=== PATIENT | female | born 1995 | race African-American/Black ===

== ENCOUNTER 2019-06-08 07:10 | Emergency (ER) | payer OTHER, SELFPAY ==
--- NOTE | 2019-06-08 08:51 | RAD REPORT ---
EXAM DESCRIPTION: RAD - Chest Single View - 06/08/2019 8:26 am CLINICAL HISTORY: Left rib pain Chest pain. COMPARISON: No comparisons FINDINGS: Portable technique limits examination quality. The lungs are grossly clear. The heart is normal in size. No displaced fractures. IMPRESSION: No acute intrathoracic process suspected.
--- NOTE | 2019-06-08 08:53 | RAD REPORT ---
EXAM DESCRIPTION: RAD - Ribs Left - 06/08/2019 8:26 am CLINICAL HISTORY: Pain s/p fall Left rib pain COMPARISON: Chest Single View dated 06/08/2019 FINDINGS: A displaced rib fracture is not seen. No aggressive rib lesion. IMPRESSION: Negative study.
[2019-06-08 08:57] LABS: Urine Blood NEGATIVE (NEG); Urine Glucose NEGATIVE (NEG); Urine Protein NEGATIVE (NEG); Urine Specific Gravity 1.025 (1.005-1.030)
--- NOTE | 2019-06-08 09:35 | ER ---
[facility] Name: Robin John Age: 23 yrs Sex: Female : 1995 Arrival Date: 06/08/2019 Time: 07:12 Bed 8 Private MD: Diagnosis: Flank pain, Left rib contusion Presentation: 06/08 07:23 Presenting complaint: Slipped in shower last night, landed on left side, now c/o left hb sided rib pain 05/04. Transition of care: patient was not received from another setting of care. Onset of symptoms was June 07, 2019. Risk Assessment: Do you want to hurt yourself or someone else? Patient reports no desire to harm self or others. Initial Sepsis Screen: Does the patient meet any 2 criteria? No. Patient's initial sepsis screen is negative. Does the patient have a suspected source of infection? No. Patient's initial sepsis screen is negative. Care prior to arrival: None. 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 - Social history:: Smoking status: Patient/guardian denies using tobacco. - Ebola Screening: : No symptoms or risks identified at this time. Screenin:43 Abuse screen: Denies threats or abuse. Denies injuries from another. Nutritional sg screening: No deficits noted. Tuberculosis screening: No symptoms or risk factors identified. Never had TB. Assessment: 08:40 General: Appears in no apparent distress. well groomed, well developed, well nourished, sg Behavior is calm, cooperative, appropriate for age. General: Appears slender. Pain: Complains of pain in left lateral posterior chest Quality of pain is described as tender. Neuro: Level of Consciousness is awake, alert, obeys commands, Oriented to person, place, time. Cardiovascular: Patient's skin is warm and dry. Chest pain is denied. Respiratory: Airway is patent Respiratory effort is even, unlabored, Respiratory pattern is regular, symmetrical. GI: Abdomen is flat, non-distended. : No signs and/or symptoms were reported regarding the genitourinary system. EENT: No signs and/or symptoms were reported regarding the EENT system. Derm: Skin is intact, is healthy with good turgor, Skin is dry, Skin is normal, Skin temperature is warm. Musculoskeletal: Circulation, motion, and sensation intact. Range of motion: intact in all extremities, Reports pain in left lateral posterior chest. Vital Signs: 07:24 BP 105 / 76; Pulse 54; Resp 16; Temp 97.8; Pulse Ox 99% ; Weight 71.67 kg; Height 5 ft. hb 2 in. (157.48 cm); Pain 7/10; 08:30 BP 110 / 72; Pulse 56; Resp 18; Pulse Ox 100% on R/A; sg 07:24 Body Mass Index 28.90 (71.67 kg, 157.48 cm) hb ED Course: 07:12 Patient arrived in ED. as 07:16 Sumit Cedillo MD is Attending Physician. kdr 07:22 Mickey Hernadez, RN is Primary Nurse. sg 07:24 Triage completed. hb 07:24 Arm band placed on. hb 08:40 Patient has correct armband on for positive identification. Bed in low position. Call sg light in reach. Side rails up X2. Pulse ox on. NIBP on. 08:48 Awaiting radiology results. sg 08:50 CXR XRAY In Process Unspecified. EDMS 08:50 Ribs Left XRAY In Process Unspecified. EDMS 10:00 No provider procedures requiring assistance completed. Patient did not have IV access sg during this emergency room visit. Administered Medications: No medications were administered Outcome: 09:34 Discharge ordered by . kdr 10:00 Discharged to home ambulatory, with family. sg 10:00 Condition: good 10:00 Discharge instructions given to patient, deep breathing, turn and cough instructions provided, pt demonstrated understanding Instructed on discharge instructions, follow up and referral plans. medication usage, safety practices, Demonstrated understanding of instructions, follow-up care, medications, Prescriptions given X 1. 10:02 Patient left the ED. sg Signatures: Dispatcher [employer] EDMS Mickey Hernadez, REMINGTON RN Rittger, Sumit, MD MD kdr Elbert, Erin as Appiah, Cynthia, RN RN hb Corrections: (The following items were deleted from the chart) 17:55 10:00 IV discontinued, intact, bleeding controlled, No redness/swelling at site. sg Pressure dressing applied, sg
--- NOTE | 2019-06-08 09:36 | EDPHYS ---
Physician Documentation [facility] Name: Robin John Age: 23 yrs Sex: Female : 1995 Arrival Date: 06/08/2019 Time: 07:12 Bed 8 Private MD: ED Physician Sumit Cedillo HPI: 06/08 08:00 This 23 yrs old Black Female presents to ER via Ambulatory with complaints of Fall kdr Injury - Rib Pain. 08:00 Details of fall: The patient fell from an upright position, while standing. Onset: The kdr symptoms/episode began/occurred suddenly, 2 day(s) ago. Associated injuries: The patient sustained injury to the chest, contusion, pain with breathing, pain with movement. Severity of symptoms: At their worst the symptoms were very mild, in the emergency department the symptoms are unchanged. The patient has not experienced similar symptoms in the past. The patient has not recently seen a physician. 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 - Social history:: Smoking status: Patient/guardian denies using tobacco. - Ebola Screening: : No symptoms or risks identified at this time. ROS: 08:00 Constitutional: Negative for fever, chills, and weight loss, Eyes: Negative for injury, kdr pain, redness, and discharge, ENT: Negative for injury, pain, and discharge, Neck: Negative for injury, pain, and swelling, Cardiovascular: Negative for anterior chest pain, palpitations, and edema, Respiratory: Negative for shortness of breath, cough, wheezing, and pleuritic chest pain, Abdomen/GI: Negative for abdominal pain, nausea, vomiting, diarrhea, and constipation, Back: Negative for injury and pain, : Negative for injury, bleeding, discharge, and swelling, MS/Extremity: Negative for injury and deformity, Skin: Negative for injury, rash, and discoloration, Neuro: Negative for headache, weakness, numbness, tingling, and seizure activity. Psych: Negative for depression, anxiety, suicide ideation, homicidal ideation, and hallucinations, Allergy/Immunology: Negative for hives, rash, and allergies, Endocrine: Negative for neck swelling, polydipsia, polyuria, polyphagia, and marked weight changes, Hematologic/Lymphatic: Negative for swollen nodes, abnormal bleeding, and unusual bruising. Exam: 08:00 Constitutional: This is a well developed, well nourished patient who is awake, alert, kdr and in no acute distress. Head/Face: Normocephalic, atraumatic. Eyes: Pupils equal round and reactive to light, extra-ocular motions intact. Lids and lashes normal. Conjunctiva and sclera are non-icteric and not injected. Cornea within normal limits. Periorbital areas with no swelling, redness, or edema. Neck: Trachea midline, no thyromegaly or masses palpated, and no cervical lymphadenopathy. Supple, full range of motion without nuchal rigidity, or vertebral point tenderness. No Meningismus. Cardiovascular: Regular rate and rhythm with a normal S1 and S2. No gallops, murmurs, or rubs. Normal PMI, no JVD. No pulse deficits. Respiratory: Lungs have equal breath sounds bilaterally, clear to auscultation and percussion. No rales, rhonchi or wheezes noted. No increased work of breathing, no retractions or nasal flaring. Abdomen/GI: Soft, non-tender, with normal bowel sounds. No distension or tympany. No guarding or rebound. No evidence of tenderness throughout. Back: No spinal tenderness. No costovertebral tenderness. Full range of motion. Skin: Warm, dry with normal turgor. Normal color with no rashes, no lesions, and no evidence of cellulitis. MS/ Extremity: Pulses equal, no cyanosis. Neurovascular intact. Full, normal range of motion. Neuro: Awake and alert, GCS 15, oriented to person, place, time, and situation. Cranial nerves II-XII grossly intact. Motor strength 5/5 in all extremities. Sensory grossly intact. Cerebellar exam normal. Normal gait. Psych: Awake, alert, with orientation to person, place and time. Behavior, mood, and affect are within normal limits. 08:00 Chest/axilla: Inspection: normal, Palpation: tenderness, that is mild, of the left lateral posterior chest. Vital Signs: 07:24 BP 105 / 76; Pulse 54; Resp 16; Temp 97.8; Pulse Ox 99% ; Weight 71.67 kg; Height 5 ft. hb 2 in. (157.48 cm); Pain 7/10; 08:30 BP 110 / 72; Pulse 56; Resp 18; Pulse Ox 100% on R/A; sg 07:24 Body Mass Index 28.90 (71.67 kg, 157.48 cm) hb MDM: 08:00 Data reviewed: vital signs, nurses notes, radiologic studies. Counseling: I had a kdr detailed discussion with the patient and/or guardian regarding: the historical points, exam findings, and any diagnostic results supporting the discharge/admit diagnosis, radiology results, the need for outpatient follow up. 09:34 Patient medically screened. kdr 06/08 08:39 Order name: Urine Dipstick--Ancillary (enter results); Complete Time: 09:00 hb 06/08 08:39 Order name: Urine --Ancillary (enter results); Complete Time: 09:00 hb 06/08 07:55 Order name: Urine Dipstick-Ancillary (obtain specimen); Complete Time: 08:38 kdr 06/08 07:55 Order name: Urine Test (obtain specimen); Complete Time: 08:38 kdr 06/08 07:55 Order name: CXR XRAY; Complete Time: 09:00 kdr 06/08 07:55 Order name: Ribs Left XRAY; Complete Time: 09:00 kdr Administered Medications: No medications were administered Disposition: 06/08/19 09:34 Discharged to Home. Impression: Flank pain, Left rib contusion. - Condition is Stable. - Discharge Instructions: Rib Contusion, Flank Pain, [id number]. - Prescriptions for Ibuprofen 800 mg Oral Tablet - take 1 tablet by ORAL route every 12 hours As needed take with food; 20 tablet. - Work release form, Medication Reconciliation Form, Thank You Letter form. - Follow up: Private Physician; When: 2 - 3 days; Reason: If symptoms return, Further diagnostic work-up, Recheck today's complaints, Continuance of care, Re-evaluation by your physician. - Problem is new. - Symptoms have improved. Signatures: Dispatcher [employer] Mickey Kate RN RN sg Sumit Cedillo MD MD [facility] Cynthia Appiah RN RN Corrections: (The following items were deleted from the chart) 10:02 09:34 06/08/2019 09:34 Discharged to Home. Impression: Flank pain, Left rib contusion. sg Condition is Stable. Forms are Medication Reconciliation Form, Thank You Letter, Antibiotic Education, Prescription Opioid Use. Follow up: Private Physician; When: 2 - 3 days; Reason: If symptoms return, Further diagnostic work-up, Recheck today's complaints, Continuance of care, Re-evaluation by your physician. Problem is new. Symptoms have improved. kdr
== END 2019-06-08 10:02 | disposition home or self-care (01) ==
LOC: ER 07:10
DX: S20.212A Contusion of left front wall of thorax, initial encounter (principal); W19.XXXA Unspecified fall, initial encounter; Y93.89 Activity, other specified; Y92.9 Unspecified place or not applicable
CPT/HCPCS: 71045; 81003; 81025; 99283

== ENCOUNTER 2019-08-22 17:42 | Emergency (ER) | payer SELFPAY ==
[2019-08-22 18:38] LABS: Urine Blood NEGATIVE (NEG); Urine Glucose NEGATIVE (NEG); Urine Protein NEGATIVE (NEG)
--- NOTE | 2019-08-22 18:46 | RAD REPORT ---
EXAM DESCRIPTION: CT - Head Brain Wo Cont - 08/22/2019 6:25 pm CLINICAL HISTORY: Headache COMPARISON: None. TECHNIQUE: Computed axial tomography of the head was obtained. IV contrast was not requested. All CT scans are performed using dose optimization technique as appropriate and may include automated exposure control or mA/KV adjustment according to patient size. FINDINGS: An intracranial bleed is not seen . The ventricles are normal in caliber. No extra-axial fluid collection is noted. Fluid within the sinuses/ mastoids is not seen. IMPRESSION: No acute intracranial abnormality is seen. If patient's symptoms persist MRI of the bra in would be recommended.
--- NOTE | 2019-08-22 18:51 | ER ---
Nurse's Notes [facility] Name: Robin John Age: 23 yrs Sex: Female : 1995 Arrival Date: 08/22/2019 Time: 17:44 Bed 14 Private MD: Diagnosis: Headache;Urinary tract infection, site not specified Presentation: 08/22 17:50 Presenting complaint: Patient states: the headache started last Thursday, the chest pains tw2 are off and on during the week but today has been the worse, i feel sob. Transition of care: patient was not received from another setting of care. Onset of symptoms was August 22, 2019. Risk Assessment: Do you want to hurt yourself or someone else? Patient reports no desire to harm self or others. Initial Sepsis Screen: Does the patient meet any 2 criteria? No. Patient's initial sepsis screen is negative. Does the patient have a suspected source of infection? No. Patient's initial sepsis screen is negative. Care prior to arrival: None. 17:50 Method Of Arrival: Ambulatory tw2 17:50 Acuity: JESÚS 3 tw2 Triage Assessment: 17:52 Headache History: Denies prior headaches. General: Appears in no apparent distress. tw2 Behavior is calm, cooperative, appropriate for age. Pain: Pain currently is 8 out of 10 on a pain scale. Pain began 2-3 days ago. Also complains of neck pain as well. Neuro: Reports headache. 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 - Social history:: Smoking status: . - Ebola Screening: : Patient denies travel to an Ebola-affected area in the 21 days before illness onset. - Family history:: not pertinent. Screenin:12 Abuse screen: Denies threats or abuse. Nutritional screening: No deficits noted. tw2 Tuberculosis screening: No symptoms or risk factors identified. Fall Risk None identified. Assessment: 18:31 General: Appears in no apparent distress. comfortable, slender, well groomed, Behavior ph is calm, cooperative, appropriate for age, Denies fever. Pain: Complains of pain in forehead, right presybeterian, left presybeterian, left occipital area, left base of the skull, right occipital area and right base of the skull. Neuro: Level of Consciousness is awake, alert, obeys commands, Oriented to person, place, time, situation, Reports headache parietal area, frontal area, Denies weakness blurred vision dizziness. Cardiovascular: Reports chest pain, nausea, Capillary refill < 3 seconds in bilateral fingers Patient's skin is warm and dry. Chest pain is located in left anterior chest wall. Respiratory: Airway is patent Respiratory effort is even, unlabored, Respiratory pattern is regular, symmetrical. GI: Reports nausea, Patient currently denies abdominal pain, vomiting. : Reports pain in lower back Denies burning with urination, urinary frequency. Derm: Skin is intact, is healthy with good turgor, Skin is pink, warm \T\ dry. Musculoskeletal: Circulation, motion, and sensation intact. Range of motion: intact in all extremities. 19:18 Reassessment: Patient appears in no apparent distress at this time. Patient and/or ph family updated on plan of care and expected duration. Pain level reassessed. Patient is alert, oriented x 3, equal unlabored respirations, skin warm/dry/pink. Attempted to d/c pt, pt requesting blood work, ERP at bedside to speak w/ pt, CBC and basic ordered. Vital Signs: 17:51 BP 120 / 55; Pulse 65; Resp 17; Temp 97.5(TE); Pulse Ox 100% on R/A; Weight 72.57 kg tw2 (R); Pain 9/10; 19:45 BP 100 / 70; Pulse 68; Resp 16; Pulse Ox 100% on R/A; lp1 ED Course: 17:44 Patient arrived in ED. mr 17:51 Triage completed. tw2 17:52 Arm band placed on. EKG completed in triage. Results shown to MD. tw2 17:53 Bed in low position. Call light in reach. tw2 17:54 Paige John, RN is Primary Nurse. ph 17:56 Anthony Dawson MD is Attending Physician. clarence 18:02 EKG done, by senior medical technologist. reviewed by Anthony Dawson MD. sm3 18:27 CT Head Brain wo Cont In Process Unspecified. EDMS 18:49 Fritz Posadas MD is Referral Physician. [facility] 19:03 Chest Single View XRAY In Process Unspecified. EDMS 19:50 Lab(s) recollected, by me, sent to lab. lp1 20:31 No provider procedures requiring assistance completed. Patient did not have IV access lp1 during this emergency room visit. Administered Medications: 20:17 Drug: Bactrim (160 mg-800 mg (DS) 1 tablet Route: PO; lp1 20:32 Follow up: Response: No adverse reaction; Medication administered at discharge. lp1 Intake: 10:30 IV: 1000ml; Total: 1000ml. ph 16:30 IV: 1000ml; Total: 2000ml. ph Outcome: 18:49 Discharge ordered by . [facility] 20:31 Discharged to home ambulatory. lp1 20:31 Condition: good 20:31 Discharge instructions given to patient, Instructed on discharge instructions, follow up and referral plans. medication usage, Demonstrated understanding of instructions, follow-up care, medications, Prescriptions given X 2. 20:32 Patient left the ED. lp1 Signatures: Dispatcher [employer] Anthony Dubois MD MD cha Rivera, Mary Karin Villanueva, RN RN lp1 Paige John RN RN Roxy Madera, RN RN 2 Leticia Holt 3
--- NOTE | 2019-08-22 18:52 | EDPHYS ---
Physician Documentation [facility] Name: Robin John Age: 23 yrs Sex: Female : 1995 Arrival Date: 08/22/2019 Time: 17:44 Bed 14 Private MD: ED Physician Anthony Dawson HPI: 08/22 18:10 This 23 yrs old Black Female presents to ER via Ambulatory with complaints of Headache, clarence Chest Pain, Back Pain. 18:10 The patient complains of pain to the top of head, forehead, left frontal area, left clarence side of the back of head, left occipital area, left base of the skull, right frontal area, right side of the back of head, right occipital area and right base of the skull. The patient describes the headache as aching. Onset: The symptoms/episode began/occurred 3 day(s) ago. Associated signs and symptoms: The patient has no apparent associated signs or symptoms. Severity of symptoms: At its worst the pain was mild, moderate, in the emergency department the pain is unchanged. Headache History: Denies prior headaches. The patient has not experienced similar symptoms in the past. NURSE ORTHO: 17:51 LMP 08/07/2019 tw2 Historical: - Allergies: 17:53 No Known Allergies; tw2 - Home Meds: 17:53 None [Active]; tw2 - PMHx: 17:53 None; tw2 - PSHx: 17:53 Left knee surgery; tw2 - Immunization history:: Adult Immunizations. - Social history:: Smoking status: . - Ebola Screening: : Patient denies travel to an Ebola-affected area in the 21 days before illness onset. - Family history:: not pertinent. ROS: 18:10 Constitutional: Negative for fever, chills, and weight loss, Eyes: Negative for injury, clarence pain, redness, and discharge, ENT: Negative for injury, pain, and discharge, Neck: Negative for injury, pain, and swelling, Cardiovascular: Negative for chest pain, palpitations, and edema, Respiratory: Negative for shortness of breath, cough, wheezing, and pleuritic chest pain, Abdomen/GI: Negative for abdominal pain, nausea, vomiting, diarrhea, and constipation, Back: Negative for injury and pain, : Negative for injury, bleeding, discharge, and swelling, MS/Extremity: Negative for injury and deformity, Skin: Negative for injury, rash, and discoloration, Psych: Negative for depression, anxiety, suicide ideation, homicidal ideation, and hallucinations, Allergy/Immunology: Negative for hives, rash, and allergies, Endocrine: Negative for neck swelling, polydipsia, polyuria, polyphagia, and marked weight changes, Hematologic/Lymphatic: Negative for swollen nodes, abnormal bleeding, and unusual bruising. 18:10 Neuro: Positive for headache. Exam: 18:10 Constitutional: This is a well developed, well nourished patient who is awake, alert, clarence and in no acute distress. Head/Face: Normocephalic, atraumatic. Eyes: Pupils equal round and reactive to light, extra-ocular motions intact. Lids and lashes normal. Conjunctiva and sclera are non-icteric and not injected. Cornea within normal limits. Periorbital areas with no swelling, redness, or edema. ENT: Nares patent. No nasal discharge, no septal abnormalities noted. Tympanic membranes are normal and external auditory canals are clear. Oropharynx with no redness, swelling, or masses, exudates, or evidence of obstruction, uvula midline. Mucous membranes moist. Neck: Trachea midline, no thyromegaly or masses palpated, and no cervical lymphadenopathy. Supple, full range of motion without nuchal rigidity, or vertebral point tenderness. No Meningismus. Chest/axilla: Normal chest wall appearance and motion. Nontender with no deformity. No lesions are appreciated. Cardiovascular: Regular rate and rhythm with a normal S1 and S2. No gallops, murmurs, or rubs. Normal PMI, no JVD. No pulse deficits. Respiratory: Lungs have equal breath sounds bilaterally, clear to auscultation and percussion. No rales, rhonchi or wheezes noted. No increased work of breathing, no retractions or nasal flaring. Abdomen/GI: Soft, non-tender, with normal bowel sounds. No distension or tympany. No guarding or rebound. No evidence of tenderness throughout. Back: No spinal tenderness. No costovertebral tenderness. Full range of motion. Female : Normal external genitalia. Skin: Warm, dry with normal turgor. Normal color with no rashes, no lesions, and no evidence of cellulitis. MS/ Extremity: Pulses equal, no cyanosis. Neurovascular intact. Full, normal range of motion. Neuro: Awake and alert, GCS 15, oriented to person, place, time, and situation. Cranial nerves II-XII grossly intact. Motor strength 5/5 in all extremities. Sensory grossly intact. Cerebellar exam normal. Normal gait. Psych: Awake, alert, with orientation to person, place and time. Behavior, mood, and affect are within normal limits. 18:36 Musculoskeletal/extremity: DVT Exam: No signs of deep vein thrombosis. no pain, no clarence swelling, no tenderness, negative Homans' sign noted on exam, no appreciated bluish discoloration, no erythema, no increased warmth. 18:51 Neck: ROM/movement: is normal, no acute changes, Meningeal signs: are not present, clarence Kernig's sign is negative, Brudzinski's sign is negative. Vital Signs: 17:51 BP 120 / 55; Pulse 65; Resp 17; Temp 97.5(TE); Pulse Ox 100% on R/A; Weight 72.57 kg tw2 (R); Pain 9/10; 19:45 BP 100 / 70; Pulse 68; Resp 16; Pulse Ox 100% on R/A; lp1 MDM: 17:56 Patient medically screened. [facility] 18:12 Data reviewed: vital signs, nurses notes, lab test result(s), radiologic studies, CT clarence scan. 08/22 18:10 Order name: Urine Culture [facility] 08/22 18:12 Order name: Urine Dipstick--Ancillary (enter results); Complete Time: 18:46 08/22 18:10 Order name: CT Head Brain wo Cont; Complete Time: 18:50 [facility] 08/22 18:35 Order name: Chest Single View XRAY; Complete Time: 19:54 [facility] 08/22 19:09 Order name: CBC with Diff; Complete Time: 20:21 ph 08/22 19:09 Order name: Basic Metabolic Panel; Complete Time: 20:13 ph 08/22 18:10 Order name: Urine Dipstick-Ancillary (obtain specimen); Complete Time: 18:19 [facility] 08/22 18:10 Order name: Urine Test (obtain specimen); Complete Time: 18:19 [facility] Administered Medications: 20:17 Drug: Bactrim (160 mg-800 mg (DS) 1 tablet Route: PO; lp1 20:32 Follow up: Response: No adverse reaction; Medication administered at discharge. lp1 Disposition: 08/22/19 18:49 Discharged to Home. Impression: Headache, Urinary tract infection, site not specified. - Condition is Stable. - Discharge Instructions: Dysuria, General Headache Without Cause, Urinary Tract Infection, Adult, Urinary Tract Infection, Adult, [id number], General Headache Without Cause, [id number]. - Prescriptions for Fioricet with Codeine 50- 325-40-30 mg Oral capsule - take 1 capsule by ORAL route every 4 hours as needed not to exceed 6 capsules per 24hrs; 20 capsule. Bactrim DS 800- 160 mg Oral Tablet - take 1 tablet by ORAL route every 12 hours for 7 days; 14 tablet. - Medication Reconciliation Form, Thank You Letter, Antibiotic Education, Prescription Opioid Use form. - Follow up: Private Physician; When: 2 - 3 days; Reason: Recheck today's complaints, Continuance of care, Re-evaluation by your physician. Follow up: Fritz Posadas MD; When: 2 - 3 days; Reason: Recheck today's complaints, Re-evaluation by your physician. - Problem is new. - Symptoms have improved. Signatures: Dispatcher [employer] EDAnthony Chavis MD MD cha Pena, Laura RN RN lp1 Roxy Madera RN RN tw2 Corrections: (The following items were deleted from the chart) 20:32 18:49 08/22/2019 18:49 Discharged to Home. Impression: Headache; Urinary tract lp1 infection, site not specified. Condition is Stable. Forms are Medication Reconciliation Form, Thank You Letter, Antibiotic Education, Prescription Opioid Use. Follow up: Private Physician; When: 2 - 3 days; Reason: Recheck today's complaints, Continuance of care, Re-evaluation by your physician. Follow up: Fritz Posadas; When: 2 - 3 days; Reason: Recheck today's complaints, Re-evaluation by your physician. Problem is new. Symptoms have improved. clarence
--- NOTE | 2019-08-22 19:44 | RAD REPORT ---
EXAM DESCRIPTION: Pat Single View08/22/2019 7:02 pm CLINICAL HISTORY: cough COMPARISON: May 2019 FINDINGS: The lungs appear clear of acute infiltrate. The heart is normal size IMPRESSION: No acute abnormalities displayed
[2019-08-22 19:57] LABS: Absolute Lymphocytes (CBC) 1.6 K/uL (0.7-4.9); Basophils % 0.7 % (0-1.3); Hematocrit 38.1 % (36.0-45.0); Lymphocytes % 35.2 % (15.3-44.8); MPV 8.2 fL (7.6-11.3); RBC Red Blood Cell Count 4.18 M/uL (3.86-4.86)
[2019-08-22] MEDS ORDERED: SMZ./TMP. 800/160 MG TABLET ONE (19:57)
[2019-08-22 20:12] LABS: BUN Blood Urea Nitrogen 7 mg/dL (7-18); Bicarbonate 29 mmol/L (21-32); Glucose Level 94 mg/dL (74-106); Potassium 3.8 mmol/L (3.5-5.1); Sodium Level 142 mmol/L (136-145)
[2019-08-22 21:08] VITALS: TEMP 97.5; O2SAT 100
[2019-08-22 21:10] VITALS: BP 100/70
--- NOTE | 2019-08-23 10:18 | EKG ---
Test Date: 2019-08-22 Test Time: 17:44:19 [employer] Tender: WARREN MEASUREMENT RESULTS: Intervals: Rate: 70 VT: 136 QRSD: 88 QT: 384 QTc: 414 Tinnie: P: 75 VT: 136 QRS: 84 T: 69 INTERPRETIVE STATEMENTS: Normal sinus rhythm with sinus arrhythmia Normal ECG No previous ECG available for comparison Electronically Signed On 08-23-19 10:16:15 CDT by Juan Jose Carl
== END 2019-08-22 20:32 | disposition home or self-care (01) ==
LOC: ER 17:42
DX: R51 Headache (principal); N39.0 Urinary tract infection, site not specified
CPT/HCPCS: 36415; 70450; 71045; 80048; 81003; 85025; 87086; 87088; 93005; 99284